=== PATIENT | female | born 1990 | race Caucasian/White ===

== ENCOUNTER 2021-12-17 09:45 | Inpatient (IN) | payer OTHER ==
[2021-12-17] MEDS ORDERED: hydrALAZINE 20 MG/ML VIAL SLOW IVP PRN ×2 (10:06→15:32)
[2021-12-17] MEDS ORDERED: Famotidine/PF 20 mg/2ml Vial SLOW IVP PRN (10:06)
[2021-12-17] MEDS ORDERED: Promethazine HCl 25 MG/ML VIAL IM PRN ×2 (10:06→13:01)
[2021-12-17] MEDS ORDERED: Bicitra 30 ML UDCUP PO PRN (10:06)
[2021-12-17] MEDS ORDERED: Ondansetron PF 4 MG/2 ML Vial IVP PRN ×3 (10:06→15:32)
[2021-12-17] MEDS ORDERED: ceFAZolin 2 GM/Dextrose 50 ML 2 GM in Premix Bag 1 BAG IVPB SCH (10:06)
[2021-12-17] MEDS ORDERED: Butorphanol Tartrate 1 MG/ML VIAL SLOW IVP PRN (10:06)
[2021-12-17] MEDS ORDERED: Acetaminophen 500 MG TAB PO PRN (10:06)
[2021-12-17] MEDS ORDERED: Phenylephrine 40 MG/NS 250 ML 250 ML ONE (11:02)
[2021-12-17] MEDS ORDERED: Ketorolac Tromethamine 30 MG/ML VIAL ONE (11:02)
[2021-12-17] MEDS ORDERED: Oxytocin 10 UNITS/ML VIAL ONE ×2 (11:03→12:42)
[2021-12-17] MEDS ORDERED: Ondansetron PF 4 MG/2 ML Vial ONE (11:03)
[2021-12-17] MEDS ORDERED: Metoclopramide HCl 10 MG/2 ML VIAL ONE (11:03)
[2021-12-17] MEDS ORDERED: Morphine PF 10 MG/10 ML VIAL ONE (11:04)
[2021-12-17 11:27] LABS: Hemoglobin 11.5 g/dL (12.0-15.5); Mean Corpuscular HGB CONC 34.3 g/dL (32.0-36.0); Mean Corpuscular Hemoglobin 28.8 pg (27.0-33.0); Mean Corpuscular Volume 83.8 fl (81.6-98.3); Mean Platelet Volume 10.7 fl (7.4-10.4); Platelet Count 259 10x3/uL (150-450); RBC Distribution Width 13.5 % (11.5-14.5); White Blood Cell (WBC) Count 11.5 10x3/uL (3.5-10.5)
[2021-12-17 11:49] VITALS: BMI 33.3
[2021-12-17] MEDS: Lactated Ringer's 1,000 ML IV SCH ×2 (11:52→19:56)
[2021-12-17] MEDS ORDERED: CEFAZOLIN 2 GM VIAL ONE (11:52)
[2021-12-17 11:55] LABS: Syphilis Antibody Nonreactive (Nonreactive); Syphilis Antibody Index 0.05 S/CO (<1.00 Non-Reactive)
[2021-12-17 11:56] LABS: Hep B Surf Ag Non-Reactive S/CO (NonReactive)
[2021-12-17 11:58] LABS: SARS-CoV-2 NAA Rapid Test Not Detected (NotDetected)
[2021-12-17] MEDS ORDERED: CEFAZOLIN 2 GM in Sodium Chloride 0.9% 100 ML IVPB SCH (12:00)
[2021-12-17 12:06] LABS: HBSAg Index 0.27 S/CO (0-0.99)
[2021-12-17] MEDS ORDERED: ePHEDrine Sulfate 50 MG/10 ML VIAL ONE (12:42)
[2021-12-17] MEDS ORDERED: Moisturizing Cream (Eucerin) 113 GM JAR TOP PRN (13:01)
[2021-12-17] MEDS ORDERED: Naloxone HCl 0.4 mg/ml Vial IVP PRN ×2 (13:01)
[2021-12-17] MEDS ORDERED: Promethazine HCl 25 MG SUPP PR PRN (13:01)
[2021-12-17] MEDS ORDERED: Meperidine HCl/PF 25 MG/ML VIAL SLOW IVP PRN (13:01)
[2021-12-17] MEDS ORDERED: Ondansetron HCl/PF 4 MG/2 ML Vial IVP PRN (13:01)
[2021-12-17] MEDS ORDERED: Fentanyl 100 MCG/2 ML VIAL SLOW IVP PRN (13:01)
[2021-12-17] MEDS ORDERED: Naloxone HCl 0.4 mg/ml Vial IV PRN (13:01)
[2021-12-17] MEDS ORDERED: diphenhydrAMINE 50 MG/ML VIAL IVP PRN (13:01)
[2021-12-17] MEDS ORDERED: Communication Order-Pharmacy FS SCH (13:15)
[2021-12-17] MEDS ORDERED: Fentanyl 100 MCG/2 ML VIAL ONE ×2 (13:41→14:11)
[2021-12-17] MEDS ORDERED: Meperidine HCl/PF 25 MG/ML VIAL ONE (15:29)
[2021-12-17] MEDS ORDERED: NS w/ Oxytocin 30 units 500 ML IV SCH (15:32)
[2021-12-17] MEDS ORDERED: Lanolin Ointment 7 GM TUBE TOP PRN (15:32)
[2021-12-17] MEDS ORDERED: Simethicone Chewable 80 MG TAB PO PRN (15:32)
[2021-12-17] MEDS ORDERED: Boostrix 0.5 ML (Tdap) VIAL IM ONE (15:32)
[2021-12-17] MEDS ORDERED: Bisacodyl 10 MG SUPP PR PRN (15:32)
[2021-12-17] MEDS ORDERED: diphenhydrAMINE 25 MG CAP PO PRN (15:32)
[2021-12-17] MEDS: metFORMIN 500 MG TAB PO SCH (17:54)
[2021-12-17] MEDS: Ketorolac Tromethamine 30 MG/ML VIAL IVP PRN (21:10)
[2021-12-17] MEDS: Docusate 100 MG CAP PO SCH (21:11)
[2021-12-18] MEDS ORDERED: HYDROcodone/Acetaminophen 5/325 mg Tablet PO PRN (01:15)
[2021-12-18] MEDS: Ferrous Sulfate 325 MG TAB PO SCH ×2 (01:27→09:01)
[2021-12-18] MEDS: Ketorolac Tromethamine 30 MG/ML VIAL IVP PRN (03:32)
[2021-12-18 04:17] LABS: Hemoglobin 9.8 g/dL (12.0-15.5); Mean Corpuscular HGB CONC 34.3 g/dL (32.0-36.0); Mean Corpuscular Volume 84.6 fl (81.6-98.3); Mean Platelet Volume 10.7 fl (7.4-10.4); Platelet Count 208 10x3/uL (150-450); RBC Distribution Width 13.4 % (11.5-14.5); Red Blood Cell (RBC) Count 3.38 10x6/uL (3.90-5.03); White Blood Cell (WBC) Count 12.6 10x3/uL (3.5-10.5)
[2021-12-18] MEDS ORDERED: Prenatal Vitamin 1 TAB PO SCH (09:00)
[2021-12-18] MEDS: HYDROcodone/Acetaminophen 5/325 mg Tablet PO PRN ×3 (09:00→17:26)
[2021-12-18] MEDS: metFORMIN 500 MG TAB PO SCH ×2 (09:01→16:35)
[2021-12-18] MEDS: Docusate 100 MG CAP PO SCH (09:01)
[2021-12-18 16:46] VITALS: BP 120/60; TEMP 98.1
[2021-12-18] MEDS ORDERED: Ibuprofen 800 MG TAB PO SCH (22:00)
== END 2021-12-18 17:40 | disposition home or self-care (01) | DRG 786 ==
LOC: CSHLD 09:45 → CSHPP 15:41
PROVIDERS: ADMIT Obstetrics & Gynecology; ATTEND Obstetrics & Gynecology
PROC: 10D00Z1 Extraction of Products of Conception, Low, Open Approach (ICD-10-PCS; principal; 2021-12-17)
DX: O34.211 Maternal care for low transverse scar from previous cesarean delivery (principal); O24.12 Pre-existing type 2 diabetes mellitus, in childbirth; Z3A.37 37 weeks gestation of pregnancy; Z37.0 Single live birth; Z20.822 Contact with and (suspected) exposure to COVID-19; E11.9 Type 2 diabetes mellitus without complications; Z79.4 Long term (current) use of insulin; Z79.84 Long term (current) use of oral hypoglycemic drugs; F17.210 Nicotine dependence, cigarettes, uncomplicated; O99.334 Smoking (tobacco) complicating childbirth; E66.9 Obesity, unspecified; O99.214 Obesity complicating childbirth; N73.6 Female pelvic peritoneal adhesions (postinfective); O99.892 Other specified diseases and conditions complicating childbirth
CPT/HCPCS: 36415; 36416; 51702; 85027; 86762; 86780; 86850; 86900; 86901; 87340; J0690; J1885; J2175; J2274; J2405; J2590; J2765; J3010; J3490; J7120; S0028; U0002

== ENCOUNTER 2022-05-06 20:09 | Emergency (ER) | payer OTHER | END 2022-05-06 21:55 | disposition home or self-care (01) | LOC: CSHERS 20:09 | DX: S93.402A Sprain of unspecified ligament of left ankle, initial encounter (principal); E11.9 Type 2 diabetes mellitus without complications; Z79.84 Long term (current) use of oral hypoglycemic drugs; X50.1XXA Overexertion from prolonged static or awkward postures, initial encounter ==

== ENCOUNTER 2024-03-01 12:05 | Outpatient (CLI) | payer OTHER | END 2024-03-01 12:06 | disposition home or self-care (01) | LOC: CSHRAD 12:05 | PROVIDERS: ATTEND Family Medicine | DX: M54.50 Low back pain, unspecified (principal) | CPT/HCPCS: 72100 ==